=== PATIENT | male | born 2000 | race Caucasian/White ===

== ENCOUNTER 2019-05-17 18:29 | Inpatient (IN) | payer OTHER ==
[~2019-05-17] VITALS: Ht 182.9 cm; Wt 51.7 kg
[~2019-05-17 18:29] MED LIST: HYDROXYZINE HCL25 M1; MENTAX1 TUBE TP; TERBINAFINE HC250 MG
[2019-05-17 18:34] VITALS: BP 122/70
[2019-05-17 19:19] LABS: ABSOLUTE BASOPHILS 0.1 thou/uL (0.0-0.2); ABSOLUTE EOSINOPHILS 0.3 thou/uL (0.0-0.7); ABSOLUTE LYMPHOCYTES 1.5 thou/uL (0.8-5.3); ABSOLUTE MONOCYTES 0.6 thou/uL (0.0-1.2); ABSOLUTE NEUTROPHILS 8.6 thou/uL (1.6-8.1); BASOPHILS 0.6 %; EOSINOPHILS 2.7 %; HEMATOCRIT 41.4 % (42.0-52.0); HEMOGLOBIN 13.8 gm/dL (14.0-18.0); LYMPHOCYTES 13.3 %; MCHC 33.3 g/dL (28.0-37.0); MCV 87.2 fL (80.0-100.0); MONOCYTES 5.4 %; MPV 6.8 fl. (7.2-11.1); NUCLEATED RBCS 0 /100WBC; PLATELET COUNT* 311 thou/uL (150-400); RBC 4.74 mil/uL (4.50-6.00); RDW-CV 13.5 % (10.5-14.5)
[2019-05-17 19:31] LABS: CREATININE 0.7 mg/dL (0.6-1.3); POTASSIUM 3.7 mmol/L (3.5-5.1)
[2019-05-17 20:57] VITALS: BP 106/56
[2019-05-17 21:20] VITALS: BP 119/69
[2019-05-18] VITALS (7 sets, daily range): BP systolic 103–130; BP diastolic 48–72
--- NOTE | 2019-05-18 04:43 | NUR ---
PATIENT PROGRESSING TOWARDS GOALS: O2 SATURATION MAINTAINED ON 2L O2 NC. DENIES SHORTNESS OF AIR. PAIN MANAGED WITH RELAXATION AND MEDICATION PER MAR. PATIENT HAS BEEN SLEEPING WITH EYES CLOSED MAJORITY OF THE SHIFT. CALL LIGHT WITHIN REACH
--- NOTE | 2019-05-18 09:24 | NUR ---
assumed pt care report received from nurse. pt is aox4. tracing sinus arrythmia on cardiac catheterization technologist. on 2 l nc. lung sound clear on bilateral sides. right ac line patent. breakfast in room. no complaint stated by patient. flu shot given this am as ordered. this nurse educated pt about importance of flu shot for him. vss. pt denies pain, n/v. call light at reach. will continue to monitor
--- NOTE | 2019-05-18 12:30 | NUR ---
Nutrition: Consult for "underweight." Pt stated he usually weighs in "the 100s." Current wt 114#. Admitted for pneumothorax. Regular diet. He stated he is "just tall and skinny" and his wt fluctuates 100-120#. He agreed to Ensure MAX TID for added kcals and protein for muscle mass - RD ordered. Otherwise, no other nutrition interventions at this time. Low risk.
--- NOTE | 2019-05-18 15:04 | NUR ---
Pt is A&O. Resides at home with his boyfriend. No DME, HH or SNF. Goal is home. Following.
[2019-05-19 04:00] VITALS: BP 114/64
[2019-05-19 08:00] VITALS: BP 102/64
[2019-05-19 11:30] VITALS: BP 120/63
[2019-05-19 13:54] VITALS: BP 120/63
[2019-05-20 06:06] LABS: HIV-1/HIV-2 ANTIBODY Non Reactive (Non Reactive)
== END 2019-05-19 14:00 | disposition home or self-care (01) | DRG 201 ==
LOC: M.ERS 18:29 → M.TBA-ER 19:58 → M.2W 19:58
PROVIDERS: Family Medicine; Nurse Practitioner; ADMIT Internal Medicine
DX: J93.83 Other pneumothorax (principal); Z87.81 Personal history of (healed) traumatic fracture; Z23 Encounter for immunization